=== PATIENT | male | born 1945 | race Two or more races ===

== ENCOUNTER 2018-07-18 13:35 | Inpatient (IN) | payer OTHER ==
[~2018-07-18] VITALS: Ht 182.9 cm; Wt 101.1 kg
[2018-07-18] MEDS ORDERED: NALOXONE HCL 0.4 MG/ML VIAL ONE (13:38)
[2018-07-18] MEDS ORDERED: NALOXONE HCL 0.4 MG/ML VIAL IV ONE (13:38)
[2018-07-18] MEDS ORDERED: SODIUM CHLORIDE 0.9% 500 ML IV ONE (13:41)
[2018-07-18] MEDS: MIDAZOLAM DRIP 50 mg/50mL 50 ML IV SCH ×2 (13:52→17:45)
[2018-07-18] MEDS: NOREPINEPHRINE 8 MG/250ML KIT 250 ML IV SCH (13:52)
[2018-07-18] MEDS ORDERED: MIDAZOLAM DRIP 50 mg/50mL 50 ML IV ONE (13:54)
[2018-07-18] MEDS ORDERED: NOREPINEPHRINE 8 MG/250ML KIT 250 ML IV ONE (13:54)
[2018-07-18] MEDS ORDERED: cefTRIAXone 1GM/50ML D5W 50 ML IV ONE (14:15)
[2018-07-18] MEDS ORDERED: LORazepam 2MG/ML-1ML VIAL IV ONE (14:28)
[2018-07-18] MEDS ORDERED: LORazepam 2MG/ML-1ML VIAL ONE (14:28)
[2018-07-18 14:32] LABS: Basophils # (auto) 0 uL; Basophils % (auto) 0.1 % (0.0-2.0); Eosinophils # (auto) 0 uL; Eosinophils % (auto) 0.1 % (0.0-7.0); Hemoglobin 12.1 g/dL (13.5-17.5); White Blood Cell 22.4 10^3/uL (4.4-10.8)
[2018-07-18 14:33] LABS: Hematocrit 40.7 % (41.0-53.0); Lymphocytes # (auto) 3.6 uL; Lymphocytes % (auto) 15.9 % (10.0-50.0); Mean Corpuscular Hemoglobin 24.2 pg (28.0-32.0); Mean Corpuscular Hgb Conc. 29.8 g/dL (32.0-36.0); Mean Corpuscular Volume 81.2 fL (80.0-100.0); Monocytes # (auto) 1.2 uL; Monocytes % (auto) 5.2 % (0.0-12.0); Neutrophils # (auto) 17.6 uL; Neutrophils % (auto) 78.7 % (37.0-80.0); Platelet Count (auto) 255 10^3/uL (140-450); Red Blood Cells 5.01 10^6/uL (4.5-5.90); Red Cell Distribution Width 15.8 % (11.8-14.3)
[2018-07-18 14:43] LABS: INR 1.1 (0.9-1.15); Partial Thromboplastin Time 28.3 sec (23.78-33.04); Prothrombin Time 11.7 sec (9.27-12.13)
[2018-07-18 14:44] LABS: BUN/Creatinine Ratio 10.5; Calcium 8.1 mg/dL (8.5-10.1); Magnesium 2.7 mg/dL (1.6-2.6)
[2018-07-18 14:54] LABS: Bilirubin, Total 0.5 mg/dL (0.2-1.0); Total Protein 7.1 g/dL (6.4-8.2)
[2018-07-18 15:14] LABS: Potassium 2.9 mmol/L (3.5-5.1)
[2018-07-18] MEDS ORDERED: SODIUM CHLORIDE 0.9% 1,000 ML IV ONE ×2 (15:19→20:00)
[2018-07-18] MEDS ORDERED: LEVOFLOXACIN 500MG 100 ML IV ONE (15:30)
[2018-07-18] MEDS ORDERED: SOD CHL 0.9%/ KCL 40MEQ 1,000 ML IV ONE (15:30)
--- NOTE | 2018-07-18 16:26 | NUR ---
RT NOTE: UNABLE TO DO VENT CHECK AT THIS TIME DUE TO STERILE PROCEDURE IN PROCESS. WILL CONTINUE TO MONITOR.
[2018-07-18] MEDS ORDERED: metroNIDAZOLE 500MG/100ML 100 ML IV ONE (16:45)
[2018-07-18] MEDS ORDERED: PROPOFOL 100 ML IV ONE (17:01)
[2018-07-18] MEDS: PROPOFOL 100 ML IV SCH (17:25)
[2018-07-18 18:50] VITALS: BP 133/92
[2018-07-18] MEDS ORDERED: POTASSIUM CHL 20MEQ/100ML 100 ML IV ONE ×2 (19:05→19:15)
[2018-07-18] MEDS ORDERED: SODIUM BICARBONATE 50ML VIAL 50 ML in SOD CHL 0.45% 1,000 ML IV ONE (20:00)
[2018-07-18] MEDS ORDERED: hydrALAZINE HCL 20 MG/ML VL IV PRN (20:00)
[2018-07-18] MEDS ORDERED: PROMETHAZINE HCL 25 MG/ML 1ML IV PRN (20:00)
[2018-07-18] MEDS ORDERED: ALBUTEROL SULF 2.5 MG/0.5ML(0.5%) NEB SOLN NEB ONE (20:00)
[2018-07-18] MEDS ORDERED: IPRATROPIUM BROM 0.5 MG/2.5ML INH SOL NEB ONE (20:00)
[2018-07-18] MEDS ORDERED: ceFAZolin 1GM VL ONE (20:02)
[2018-07-18] MEDS ORDERED: BUPIVACAINE 0.25% INJ 50ML VIAL ONE (20:03)
[2018-07-18 20:15] VITALS: BP 138/86
[2018-07-18 21:31] LABS: Potassium 3.1 mmol/L (3.5-5.1)
[2018-07-18 21:39] LABS: Lactic Acid w/Reflex 3.1 mmol/L (0.4-2.0)
[2018-07-19] VITALS (98 sets, daily range): BP systolic 82–154; BP diastolic 37–77
--- NOTE | 2018-07-19 00:03 | NUR ---
Pt being admitted to ICU from OR [facility],JANINE admitted from OR to ICU via gurney on cardiac rehabilitation program director, and portable 02. Patient transferred to bed, connected to ICU monitoring and oxygen, and weighed by bedscale. Patient oriented to Holly Hermosillo, primary RN, unit, room, bed, and unit policies regarding patient care and visiting hours. All questions and concerns addressed, family verbalized understanding. NOTE: Patient on sedation with versed @ 15 mg/hr, levophed drip @ 8 mcg/min, NS w/ NaHCO3 @ 50ml/hr, NS w/ 40meq KCL @ 50ml/hr infusing in the right femoral central line. Midline post-op incision is clean, dry and intact with marlena, colostomy bag almost filled with liquid, brown stools, odom catheter intact, NGT to the right nares connected to LIS. MRSA swab in the nares done and sent to lab. Will titrate drips per protocol.
--- NOTE | 2018-07-19 00:45 | NUR ---
REPORT RECEIVED FROM THELMA ZARATE, PT FROM OR.
[2018-07-19] MEDS ORDERED: metroNIDAZOLE 500MG/100ML 100 ML IV ONE (00:51)
[2018-07-19] MEDS ORDERED: DOXYCYCLINE 100MG/250ML 250 ML IV ONE (00:51)
[2018-07-19] MEDS ORDERED: MIDAZOLAM DRIP 50 mg/50mL 50 ML IV ONE ×2 (01:06→04:08)
[2018-07-19] MEDS: metroNIDAZOLE 500MG/100ML 100 ML IV SCH ×4 (01:28→21:53)
[2018-07-19] MEDS: DOXYCYCLINE 100MG/250ML 250 ML IV SCH ×2 (01:29→10:17)
--- NOTE | 2018-07-19 01:50 | NUR ---
LIQUID, BROWN STOOLS EMPTIED FROM COLOSTOMY BAG ABOUT 400ML.
--- NOTE | 2018-07-19 02:05 | NUR ---
RUNS OF VTACH NOTED, EKG DONE AND STRIP ATTACHED TO CHART. JOEY HOLGUIN AWARE. WILL NOTIFY DR. Rush RESENDIZ.
--- NOTE | 2018-07-19 02:15 | NUR ---
LEAKING OF LIQUID STOOLS FROM THE COLOSTOMY STUMP NOTED ALL OVER THE BODY, CLEANED PT, SPONGE BATH DONE AND COMPLETE LINENS AND GOWN CHANGED. REPOSITIONED FOR COMFORT. Addendum: 07/19/18 at 0801 by Finn Hermosillo RN CLEANED COLOSTOMY SITE AND CHANGED A NEW COLOSTOMY BAG.
--- NOTE | 2018-07-19 03:00 | NUR ---
ABDOMINAL DRESSING CHANGED AND MIDLINE INCISION COVERED WITH PRIMAPORE DRESSING.
--- NOTE | 2018-07-19 03:20 | NUR ---
CENTRAL LINE DRESSING CHANGED ASEPTICALLY, BIOPATCH APPLIED TO BASE OF THE CENTRAL LINE.
--- NOTE | 2018-07-19 03:56 | NUR ---
BLOOD DRAW FROM THE CENTRAL LINE DONE AND SPECIMEN SENT TO LAB VIA BULLET.
[2018-07-19] MEDS: MIDAZOLAM DRIP 50 mg/50mL 50 ML IV SCH ×3 (04:17→22:41)
[2018-07-19 05:28] LABS: Basophils # (auto) 0 uL; Eosinophils # (auto) 0 uL; Hemoglobin 11.4 g/dL (13.5-17.5); Lymphocytes # (auto) 1.8 uL; Monocytes # (auto) 0.7 uL; Neutrophils # (auto) 6.9 uL
[2018-07-19 05:30] LABS: Basophils % (auto) 0.1 % (0.0-2.0); Hematocrit 36.2 % (41.0-53.0); Lymphocytes % (auto) 19.3 % (10.0-50.0); Mean Corpuscular Hgb Conc. 31.6 g/dL (32.0-36.0); Mean Corpuscular Volume 79.1 fL (80.0-100.0); Monocytes % (auto) 7.6 % (0.0-12.0); Nucleated Red Blood Cells % 0.1 %; Platelet Count (auto) 175 10^3/uL (140-450); Red Blood Cells 4.58 10^6/uL (4.5-5.90); Red Cell Distribution Width 15.9 % (11.8-14.3); White Blood Cell 9.5 10^3/uL (4.4-10.8)
[2018-07-19] MEDS: PROPOFOL 100 ML IV SCH (05:30)
--- NOTE | 2018-07-19 05:44 | NUR ---
PAGED DR. Ben RESENDIZ FOR PAIN MEDS AND SEDATION. LEFT A VOICE MESSAGE, AWAITING CALL BACK.
[2018-07-19 05:49] LABS: Calcium 6.7 mg/dL (8.5-10.1)
[2018-07-19 05:51] LABS: BUN/Creatinine Ratio 19.6; Bilirubin, Total 0.5 mg/dL (0.2-1.0); Total Protein 4.8 g/dL (6.4-8.2)
[2018-07-19 06:04] LABS: Potassium 2.6 mmol/L (3.5-5.1)
--- NOTE | 2018-07-19 06:15 | NUR ---
PAGED DR. RESENDIZ RE: CRITICAL K 2.6 AND RUNS OF VTACH POST-OP. AWAITING CALL BACK.
--- NOTE | 2018-07-19 06:31 | NUR ---
DR. RESENDIZ CALLED BACK, UPDATED ON PT'S STATUS, NEW ORDERS GIVEN AND WILL CARRY OUT ORDERS AFTER ORDERS HAD BEEN VERIFIED AND READ BACK.
[2018-07-19] MEDS ORDERED: fentaNYL Drip 2500mCg/250mlNS 250 ML IV ONE (06:43)
[2018-07-19] MEDS ORDERED: POTASSIUM CHL 20MEQ/100ML 100 ML IV ONE (06:44)
[2018-07-19] MEDS ORDERED: MORPHINE SULF INJ 2 MG/ML SYRINGE 1ML IV PRN (06:45)
[2018-07-19] MEDS: fentaNYL Drip 2500mCg/250mlNS 250 ML IV SCH (07:06)
[2018-07-19] MEDS: POTASSIUM CHL 20MEQ/100ML 100 ML IV SCH ×4 (07:06→16:50)
--- NOTE | 2018-07-19 07:30 | NUR ---
BEDSIDE REPORT RECEIVED FROM NIGHT RNLIZETH. PT SEDATED, ON THE VENTILATOR AND WITH VSS. NO DISTRESS NOTED. CONTINUE TO MONITOR.
--- NOTE | 2018-07-19 07:30 | NUR ---
RECEIVED A CALL FROM DR. MARSHALL (RADIOLOGY DEPT) RE: CXR RESULT AND RELAYED TO DAY SHIFT TESSA CORONADO.
--- NOTE | 2018-07-19 07:53 | NUR ---
ASSESSMENT PT RESTING IN BED WITH EYES CLOSED. WITHDRAWS TO PAINFUL STIMULI. NO SPONTANEOUS MOVEMENT NOTED. SEDATED ON VERSED AT 15MG/HR AND FENTANYL AT 25. RR OF 30 AND SO INCREASED FENTANYL TO 30 . VENT SETTINGS OF : 7.5 ETT/24 AT THE LIP, TV 550, AC 14, 40% FIO2 AND PEEP OF 5. LUNGS CLEAR AND DIMINISHED. SCDS TO BLE. PALPABLE PULSES TO ALL EXTREMITIES. TELE [address] IN LEAD IIIA DN ELEVATED ST IN LEAD V. ABD SOFT WITH HYPOACTIVE BOWEL SOUND. . MIDLINE ABD DRESSING CLEAN AND DRY. COLOSTOMY TO LLQ, EMPTIED OF 325ML OF THICK LIQUID BROWN BM. OGT NOT IN PLACE AND REMOVED. NINA CATHETER DRAINING DARK CLAYTON URINE WITH SEDIMENT. TURNED FOR COMFORT TO HIS LEFT SIDE. SACRUM CLEAR OF ANY BREAKDOWN. PT WITH TLC TO THE RIGHT FEMORAL, SITE BENIGN. RAILS UP X4 AND BED IN LOW POSITION FOR PT SAFETY. CONTINUE TO MONITOR.
--- NOTE | 2018-07-19 07:53 | NUR ---
OGT NOT IN PROPER PLACE AND REMOVED. WILL REINSERT. Addendum: 07/19/18 at 1603 by aBrb Linares RN Amended: Links added.
[2018-07-19] MEDS: NOREPINEPHRINE 8 MG/250ML KIT 250 ML IV SCH ×2 (08:30→13:50)
--- NOTE | 2018-07-19 09:00 | NUR ---
SEDATION VACATION NO SEDATION VACATION PT'S RR 28-30 WITH CURRENT SEDATION. Addendum: 07/19/18 at 1751 by Barb Lniares RN Amended: Links added.
--- NOTE | 2018-07-19 09:46 | NUR ---
MD VISIT PT SEEN AND EXAMINED BY DR DAILY. UPDATED HIM ON THE PT'S ADMITTING DIAGNOSIS, SURGERY AND CURRENT CONDITION. ORDERS RECEIVED FOR URINE STUDIES AND NINA CATHETER CLAMPED.
[2018-07-19] MEDS ORDERED: LEVOFLOXACIN 250MG 50 ML IV SCH (10:00)
[2018-07-19] MEDS: PANTOPRAZOLE 40 MG/10 ML VIAL IV SCH (10:16)
--- NOTE | 2018-07-19 10:30 | NUR ---
PT SEEN AND EXAMINED BY DR Sheila RESENDIZ. UPDATED HIM ON THE PT'S ADMISSION INFO, SURGERY, CURRENT LABS AND CURRENT CONDITION. WANTS K LEVEL 30 MINUTES AFTER FIST 40 mEQ REPLACEMENT POTASSIUM HAS INFUSED. THEN CALL HIM WITH RESULT FOR FURTHER ORDERS.
[2018-07-19 11:24] LABS: Urine WBC None Seen /hpf (0 - 3)
[2018-07-19 11:54] LABS: Protein, Urine 150.2 mg/dL (0.0-11.9)
[2018-07-19 11:56] LABS: Urine Blood 2+ /uL (Negative); Urine Mucus FEW (None Seen); Urine Specific Gravity 1.026 (1.001-1.035)
[2018-07-19 12:11] LABS: Urine Bacteria FEW /hpf (None Seen)
[2018-07-19] MEDS: SOD CHL 0.45% WITH 20MEQ KCL 1,000 ML IV SCH ×3 (12:15→22:40)
--- NOTE | 2018-07-19 13:00 | NUR ---
PAGED DR Gerard HITCHCOCK FOR THE SECOND TIME TO SEE IF HE IS OKAY WITH HEPARIN DRIP ORDERED BY DR BROOKS.
--- NOTE | 2018-07-19 13:08 | NUR ---
WOUND CARE NOTE: Wound care in to see patient due to low Tato score and intubation status putting patient to high risk for skin breakdown . Patient is 73 years old male with admitting diagnosis of CPR w/ ROSC. Patient is resting in ICU bed in Rm. 110. He's intubated, sedated and mechanically ventilated. Patient appears to be in no pain using [place] Dash Faces Pain Scale. Skin assessment done with the assistance of patient's nurse, TESSA Day. Patient has C/D/I abdominal dressing s/p Exploratory Lap by Dr. Tate. Patient's Lt antecubital noted with erythema, skin is intact, no drainage or odor noted, left open to air. Bedside nurse reported that she's not sure what is infusing to Lt antecubital previous IV site. Skin is soft, no edema or induration noted, left open to air. No pressure injury related issue noted. Patient tolerated well. Repositioned patient for comfort facing his Rt side, redistributed pressure points with pillows. Patient tolerated well. RECOMMENDATION: BID/PRN cleaning and application of Barrier cream sacrum as preventative per MD order, frequent turning and repositioning schedule as condition permits, redistribute pressure points with pillows, elevate heels on pillows, continue monitoring by wound care while patient is mechanically ventilated. Addendum: 07/19/18 at 1539 by Vanessa Chery RN Amended: Links added.
[2018-07-19] MEDS ORDERED: ASPirin 325 MG TAB PO ONE (14:00)
[2018-07-19] MEDS ORDERED: ATORVASTATIN 20 MG TAB PO ONE (14:00)
--- NOTE | 2018-07-19 14:00 | NUR ---
RECEIVED ORDERS FOR PO MEDS FROM DR BROOKS, BUT PENDING APPROVAL FROM DR Gerard HITCHCOCK TO ADMINISTER PO MEDS AFTER PT HAD SURGERY LAST NIGHT.
[2018-07-19] MEDS: LEVOFLOXACIN 500MG 100 ML IV SCH (15:49)
--- NOTE | 2018-07-19 16:43 | NUR ---
ELEVATED TEMP/ PAGED AND SPOKE WITH DR Sheila RESENDIZ REGARDING PT TEMP OF 101.3 . ORDERS RECEIVED FOR TYLENOL PER OGT ONLY IF APPROVED BY DR Gerard HITCHCOCK, BLOOD CULTURES X2, VANCOMYCIN PER PHARMACY WITH ONE GRAM TO BE GIVEN NOW.
[2018-07-19] MEDS ORDERED: VANCOMYCIN PER PHARMACY 0 MG IV SCH (16:45)
[2018-07-19] MEDS ORDERED: VANCOMYCIN 1GM/250ML 250 ML IV ONE (16:45)
[2018-07-19] MEDS ORDERED: VANCOMYCIN 1,500 MG in D5W 5% 250 ML IV SCH (18:00)
--- NOTE | 2018-07-19 18:06 | NUR ---
ORAL TEMP NOW 99.8. CONTINUE TO MONITOR.
--- NOTE | 2018-07-19 19:00 | NUR ---
MD VISIT KPT SEEN AND EXAMINED BY DR CAREY. UPDATED HIM ON THE PT'S HX, CURRENT CONDITION. HE SPOKE WITH THE PT'S KIDS WHO WERE AT THE BEDSIDE.
--- NOTE | 2018-07-19 19:30 | NUR ---
BEDSIDE REPORT GIVEN TO NIGHT RNAQUILES. CHECKED PT'S STOMA A LIGHT PINK. NO CHANGE SINCE AM ASSESSMENT.
--- NOTE | 2018-07-19 19:35 | NUR ---
BLOOD DRAWN FOR CBC PT AND BMP.
--- NOTE | 2018-07-19 19:45 | NUR ---
OPENING SHIFT NOTE Received report from TESSA Day. Pt resting in bed, intubated, sedated, and on vasopressor. See IV spreadsheet and completed physical assessment. Stoma to LLQ pinkish-red in center with darkening noted around center and small amount of light brown, liquid stool draining from stoma. Bed locked, in lowest position with top two side rails up, and call light within reach. All alarms on and audible. Will continue to monitor pt.
[2018-07-19 20:13] LABS: Basophils # (auto) 0 uL; Eosinophils # (auto) 0 uL; Hemoglobin 10.2 g/dL (13.5-17.5); Lymphocytes # (auto) 2.1 uL; Monocytes # (auto) 0.8 uL; Neutrophils # (auto) 8.4 uL; Red Cell Distribution Width 16.2 % (11.8-14.3)
[2018-07-19 20:15] LABS: Basophils % (auto) 0.1 % (0.0-2.0); Hematocrit 32.3 % (41.0-53.0); Lymphocytes % (auto) 18.6 % (10.0-50.0); Mean Corpuscular Hemoglobin 24.8 pg (28.0-32.0); Mean Corpuscular Hgb Conc. 31.6 g/dL (32.0-36.0); Mean Corpuscular Volume 78.4 fL (80.0-100.0); Monocytes % (auto) 7.2 % (0.0-12.0); Neutrophils % (auto) 74.1 % (37.0-80.0); Nucleated Red Blood Cells % 0.1 %; Platelet Count (auto) 137 10^3/uL (140-450); Red Blood Cells 4.12 10^6/uL (4.5-5.90); White Blood Cell 11.4 10^3/uL (4.4-10.8)
[2018-07-19 20:24] LABS: INR 1.33 (0.9-1.15); Partial Thromboplastin Time 37.8 sec (23.78-33.04)
[2018-07-19 20:56] LABS: Albumin 1.7 g/dL (3.4-5.0); Bilirubin, Direct 0.2 mg/dL (0-0.2); Calcium 6.7 mg/dL (8.5-10.1); Magnesium 1.8 mg/dL (1.6-2.6)
[2018-07-19 20:59] LABS: BUN/Creatinine Ratio 19.6; Bilirubin, Total 0.5 mg/dL (0.2-1.0); Potassium 3.1 mmol/L (3.5-5.1); Total Protein 4.7 g/dL (6.4-8.2)
--- NOTE | 2018-07-19 21:44 | NUR ---
PHONE CALL FROM GRANDANTONIOUGHTER Received phone call from manpreet Aguilar's granddaughter who provided to correct password. Updated on pt condition and answered all questions. Lauren verbalized understanding.
--- NOTE | 2018-07-19 22:57 | NUR ---
DR. Azul HITCHCOCK AT BEDSIDE Dr. Azul Hitchcock at bedside assessing pt. Notified of darkening noted around stoma and updated on pt condition. Per Dr. Azul Hitchcock, no medications to be given via OGT at this time and heparin drip not to be started. No new orders received. Also notified Dr. Azul Hitchcock of family's request for update via phone call this evening. Per Dr. Azul Hitchcock, will update family tomorrow during daytime.
--- NOTE | 2018-07-19 23:31 | NUR ---
COLOSTOMY BAG CHANGED Colostomy bag changed. Pt tolerated well.
[2018-07-20] VITALS (106 sets, daily range): BP systolic 93–126; BP diastolic 44–64
--- NOTE | 2018-07-20 | NUR ---
BATH/LINEN CHANGE Pt given complete CHG bath. Skin integrity assessed for any changes, no changes noted. Linens changed. Pt repositioned for comfort. Pt tolerated well and VSS.
--- NOTE | 2018-07-20 01:38 | NUR ---
LEFT V/M FOR DR. Uche RESENDIZ RE: POTASSIUM Left v/m for Dr. Uche Resendiz regarding pt's potassium. Awaiting return phone call.
--- NOTE | 2018-07-20 01:40 | NUR ---
RETURN PHONE CALL FROM DR. Uche RESENDIZ Received return phone call from Dr. Uche Resendiz. Notified of potassium and updated on pt condition. Telephone orders received and verified via read-back.
[2018-07-20] MEDS ORDERED: MAGNESIUM SULFATE 1GM/100ML 100 ML IV ONE ×2 (01:45→01:52)
[2018-07-20] MEDS ORDERED: POTASSIUM CHL 20MEQ/100ML 100 ML IV ONE (01:52)
[2018-07-20] MEDS: POTASSIUM CHL 20MEQ/100ML 100 ML IV SCH ×2 (02:00→04:11)
[2018-07-20] MEDS: MIDAZOLAM DRIP 50 mg/50mL 50 ML IV SCH ×3 (03:11→22:40)
[2018-07-20] MEDS: fentaNYL Drip 2500mCg/250mlNS 250 ML IV SCH (06:24)
[2018-07-20] MEDS: NOREPINEPHRINE 8 MG/250ML KIT 250 ML IV SCH (06:25)
[2018-07-20] MEDS: metroNIDAZOLE 500MG/100ML 100 ML IV SCH ×3 (06:27→22:40)
[2018-07-20] MEDS ORDERED: ALBUTEROL SULF 2.5 MG/0.5ML(0.5%) NEB SOLN NEB PRN (07:30)
--- NOTE | 2018-07-20 07:30 | NUR ---
REPORT Report given to TESSA Day. Care endorsed.
[2018-07-20] MEDS: SOD CHL 0.45% WITH 20MEQ KCL 1,000 ML IV SCH ×2 (07:36→16:18)
--- NOTE | 2018-07-20 08:06 | NUR ---
ASSESSMENT PT RESTING IN BED WITH EYES CLOSED. SLIGHT WITHDRAWL TO PAINFUL STIMULI. PUPILS 2 AND SLUGGISH. SEDATED ON VERSED AT 13 MG/HR, DECREASED TO 12, AND FENTANYL AT 125 MCG/HR. ON THE VENTILATOR WITH 7.5 ET/24 AT THE LIP, TV 550, AC 14, 30% FIO2 AND PEEP OF 5. LUNGS CLEAR THROUGHOUT. SUCTIONED VIA ETT FOR SMALL AMOUNT OF THIN CLEAR FLUID. TELE ST AT 115 . PALPABLE PULSES TO ALL EXTREMITIES. SCDS TO BLE. ABD SOFT WITH NO BOWEL SOUNDS NOTED. MIDLINE INCISION WITH DRESSING CLEAN AND DRY. LLQ COLOSTOMY WITH LIQUID SHAH/BROWN BM DRAINING. STOMA PINK/LIGHT RED. NINA CATHETER DRAINING CLAYTON URINE WITH SEDIMENT. TLC TO THE RIGHT FEMORAL, SITE BENIGN. PT CURRENTLY ON VERSED, FENTANYL, LEVOPHED AND IVF. PT WITH OPTIFOAM TO SACRUM, SKIN CLEAR UNDERNEATH. OPTIFOAM TO LAC, SKIN WAS VERY RED YESTERDAY AND SMALL AMOUNT OF BLOOD FROM OLD IV SITE. TODAY BLANCHABLE PINK. CONTINUE TO MONITOR. RAILS UP X4 AND BED IN LOW POSITION FOR PT SAFETY.
[2018-07-20 08:23] LABS: Basophils # (auto) 0 uL; Hemoglobin 10.1 g/dL (13.5-17.5); Lymphocytes # (auto) 2.2 uL; Monocytes # (auto) 0.8 uL
[2018-07-20 08:25] LABS: Eosinophils # (auto) 0.1 uL; Eosinophils % (auto) 0.5 % (0.0-7.0); Hematocrit 31.6 % (41.0-53.0); Lymphocytes % (auto) 19.1 % (10.0-50.0); Mean Corpuscular Hemoglobin 24.9 pg (28.0-32.0); Mean Corpuscular Hgb Conc. 31.8 g/dL (32.0-36.0); Mean Corpuscular Volume 78.1 fL (80.0-100.0); Monocytes % (auto) 6.5 % (0.0-12.0); Neutrophils # (auto) 8.6 uL; Neutrophils % (auto) 73.9 % (37.0-80.0); Platelet Count (auto) 133 10^3/uL (140-450); Red Blood Cells 4.05 10^6/uL (4.5-5.90); Red Cell Distribution Width 15.9 % (11.8-14.3); White Blood Cell 11.7 10^3/uL (4.4-10.8)
[2018-07-20 08:40] LABS: INR 1.2 (0.9-1.15); Partial Thromboplastin Time 38.5 sec (23.78-33.04); Prothrombin Time 12.7 sec (9.27-12.13)
[2018-07-20 08:43] LABS: Albumin 1.8 g/dL (3.4-5.0); Calcium 7.1 mg/dL (8.5-10.1); Potassium 3.5 mmol/L (3.5-5.1)
[2018-07-20 08:48] LABS: Bilirubin, Direct 0.2 mg/dL (0-0.2); Bilirubin, Total 0.5 mg/dL (0.2-1.0); Phosphorus 2.4 mg/dL (2.5-4.90); Total Protein 4.8 g/dL (6.4-8.2)
[2018-07-20] MEDS ORDERED: ATORVASTATIN 20 MG TAB PO ONE (10:00)
--- NOTE | 2018-07-20 10:30 | NUR ---
PT REPOSITIONED TO HIS RIGHT SIDE. NO TURNS TO THE LEFT PER DR Gerard HITCHCOCK.
[2018-07-20] MEDS: LEVOFLOXACIN 500MG 100 ML IV SCH (10:31)
[2018-07-20] MEDS: ASPirin 325 MG TAB PO SCH (10:32)
[2018-07-20] MEDS: PANTOPRAZOLE 40 MG/10 ML VIAL IV SCH (10:32)
--- NOTE | 2018-07-20 10:55 | NUR ---
ORAL TEMP OF 100.7. APPLIED ICE PACKS UNDER BOTH ARMS AND COOL WASHCLOTH TO FOREHEAD. CONTINUE TO MONITOR.
[2018-07-20] MEDS: ALBUTEROL SULF 2.5 MG/0.5ML(0.5%) NEB SOLN NEB SCH ×2 (11:40→18:58)
[2018-07-20] MEDS: ALBUMIN 25% 100 ML IV SCH ×2 (12:13→18:17)
[2018-07-20] MEDS ORDERED: VANCOMYCIN PER PHARMACY 0 MG IV SCH (13:30)
--- NOTE | 2018-07-20 14:00 | NUR ---
Respiratory note: ADVANCED ETT TO 26CM PER XRAY REPORT.
[2018-07-20] MEDS ORDERED: FUROSEMIDE 100 MG/10ML VIAL IV ONE (15:45)
--- NOTE | 2018-07-20 16:00 | NUR ---
MD/DECREASED UOP/LUNG CONGESTION SPOKE WITH DR DAILY AND MADE AWARE OF ONLY 125 ML UOP FOR DAY SHIFT SO FAR AND THAT PT WITH INSPIRATORY AND EXPIRATORY RHONCHI THROUGHOUT. ORDER RECEIVED FOR LASIX 80 IV ONCE. ADMINISTERED 10 MG IV NOW AND WILL GIVEN PT TOLERATES. CURRENT BP OF 108/51 AND PT ON LEVOPHED AT 3 MCG. CONTINUE TO MONITOR BP.
--- NOTE | 2018-07-20 16:20 | NUR ---
BP OF 110/54. GIVEN 20MG OF OF ORDERED 80 MG IV LASIX. CONTINUE TO MONITOR BP.
[2018-07-20] MEDS: PROPOFOL 100 ML IV SCH (17:19)
[2018-07-20] MEDS ORDERED: VANCOMYCIN 1,250 MG in D5W 5% 250 ML IV SCH (18:00)
[2018-07-20 18:10] LABS: Basophils # (auto) 0 uL; Eosinophils # (auto) 0 uL; Eosinophils % (auto) 0.4 % (0.0-7.0); Hemoglobin 8.9 g/dL (13.5-17.5)
[2018-07-20] MEDS: PIPERACILLIN-TAZOB 3.375GM 100 ML IV SCH (18:17)
[2018-07-20 18:18] LABS: Basophils % (auto) 0.1 % (0.0-2.0); Hematocrit 28.2 % (41.0-53.0); Lymphocytes # (auto) 1.6 uL; Lymphocytes % (auto) 17.7 % (10.0-50.0); Mean Corpuscular Hgb Conc. 31.7 g/dL (32.0-36.0); Mean Corpuscular Volume 78.8 fL (80.0-100.0); Monocytes # (auto) 0.6 uL; Monocytes % (auto) 6.9 % (0.0-12.0); Neutrophils # (auto) 6.9 uL; Neutrophils % (auto) 74.9 % (37.0-80.0); Platelet Count (auto) 116 10^3/uL (140-450); Red Blood Cells 3.57 10^6/uL (4.5-5.90); Red Cell Distribution Width 16.2 % (11.8-14.3); White Blood Cell 9.2 10^3/uL (4.4-10.8)
[2018-07-20 18:29] LABS: Calcium 7.3 mg/dL (8.5-10.1); Magnesium 2.1 mg/dL (1.6-2.6); Potassium 3.8 mmol/L (3.5-5.1)
[2018-07-20 18:33] LABS: BUN/Creatinine Ratio 14.9; Bilirubin, Direct 0.2 mg/dL (0-0.2); Bilirubin, Total 0.5 mg/dL (0.2-1.0); Total Protein 4.8 g/dL (6.4-8.2)
[2018-07-20 18:42] LABS: INR 1.16 (0.9-1.15); Partial Thromboplastin Time 40.7 sec (23.78-33.04); Prothrombin Time 12.3 sec (9.27-12.13)
--- NOTE | 2018-07-20 18:43 | NUR ---
ELEVATED TEMP PT WITH INCREASING ORAL TEMP. NOW AT 101.5, DESPITE ICE PACKS. NO PO MEDS PER DR Gerard HITCHCOCK. APPLIED COOLING BLANKET AT MANUAL SETTING WITH WATER TEMP OF 65 DEGREES. WILL CONTINUE TO MONITOR ORAL TEMP MANUALLY. DO NOT WANT TO INSERT RECTAL PROBE S/P PT'S SURGERY. FAMILY AT THE BEDSIDE AND AWARE.
--- NOTE | 2018-07-20 19:15 | NUR ---
REPORT GIVEN TO [place] RNAQUILES.
--- NOTE | 2018-07-20 19:42 | NUR ---
PAGED AND SPOKE WITH DR LADY ANDINO REGARDING VANCOMYCIN DOSE AND WORSENING RENAL FUNCTION. NOTIFIED OF LAB RESULTS DRAWN AT 1740, INCLUDING BUN 33/CREAT 2.22 AND PLATELET COUNT OF 116 AND ALSO ALL CULTURE RESULTS.. ALSO NOTIFIED OF EARLIER LACTIC ACID RESULTS. ORDER RECEIVED TO DC VANCOMYCIN AND START ZYVOX 600MG IV Q 12 HOURS BUT TO DISCUSS THIS WITH DR Sheila RESENDIZ TOMORROW.
--- NOTE | 2018-07-20 20:00 | NUR ---
OPENING SHIFT NOTE Received report from TESSA Day. Pt resting in bed, intubated, sedated, and on vasopressor. See IV spreadsheet and completed physical assessment. Cooling measures implemented for elevated temperature. Stoma to LLQ pinkish-red in center with darkening noted around center and small amount of light brown, liquid, sedimented stool draining from stoma. Bed locked, in lowest position with top two side rails up, and call light within reach. All alarms on and audible. Will continue to monitor pt.
--- NOTE | 2018-07-20 23:01 | NUR ---
VISITOR Pt's daughter, Bren at bedside. Updated on pt condition and answered all questions. Bren verbalized understanding.
[2018-07-20] MEDS: LINEZOLID 600MG/300ML 300 ML IV SCH (23:58)
[2018-07-21] VITALS (104 sets, daily range): BP systolic 86–150; BP diastolic 43–77
[2018-07-21] MEDS: PIPERACILLIN-TAZOB 3.375GM 100 ML IV SCH ×3 (00:03→13:24)
[2018-07-21] MEDS: ALBUTEROL SULF 2.5 MG/0.5ML(0.5%) NEB SOLN NEB SCH ×4 (00:14→18:57)
--- NOTE | 2018-07-21 00:21 | NUR ---
DR. Azul HITCHCOCK AT BEDSIDE Dr. Azul Hitchcock at bedside assessing pt. Dr. Azul Hitchcock spoke with pt's daughter, Bren at bedside and answered all questions. Bren verbalized understanding. No new orders received.
[2018-07-21] MEDS: fentaNYL Drip 2500mCg/250mlNS 250 ML IV SCH (01:51)
--- NOTE | 2018-07-21 01:53 | NUR ---
LEVOPHED OFF Levophed held. Pt's BP 115/62. Will continue to monitor.
[2018-07-21] MEDS: ALBUMIN 25% 100 ML IV SCH (02:29)
[2018-07-21] MEDS: SOD CHL 0.45% WITH 20MEQ KCL 1,000 ML IV SCH ×3 (03:40→21:00)
[2018-07-21 04:10] LABS: Basophils # (auto) 0 uL; Basophils % (auto) 0.1 % (0.0-2.0); Eosinophils # (auto) 0.1 uL; Eosinophils % (auto) 0.7 % (0.0-7.0); Lymphocytes # (auto) 1.3 uL; Monocytes # (auto) 0.6 uL
[2018-07-21 04:13] LABS: Hematocrit 24.7 % (41.0-53.0); Lymphocytes % (auto) 16.3 % (10.0-50.0); Mean Corpuscular Hemoglobin 25.3 pg (28.0-32.0); Mean Corpuscular Hgb Conc. 32.3 g/dL (32.0-36.0); Mean Corpuscular Volume 78.4 fL (80.0-100.0); Monocytes % (auto) 7.8 % (0.0-12.0); Neutrophils # (auto) 5.8 uL; Neutrophils % (auto) 75.1 % (37.0-80.0); Platelet Count (auto) 92 10^3/uL (140-450); Red Blood Cells 3.16 10^6/uL (4.5-5.90); Red Cell Distribution Width 15.8 % (11.8-14.3); White Blood Cell 7.8 10^3/uL (4.4-10.8)
[2018-07-21 04:27] LABS: INR 1.2 (0.9-1.15); Partial Thromboplastin Time 42.8 sec (23.78-33.04); Prothrombin Time 12.7 sec (9.27-12.13)
[2018-07-21 04:36] LABS: Potassium 3.6 mmol/L (3.5-5.1)
[2018-07-21 04:45] LABS: Albumin 2.4 g/dL (3.4-5.0); BUN/Creatinine Ratio 13.7; Bilirubin, Direct 0.3 mg/dL (0-0.2); Bilirubin, Total 0.6 mg/dL (0.2-1.0); Calcium 7.4 mg/dL (8.5-10.1); Magnesium 2.2 mg/dL (1.6-2.6); Total Protein 4.9 g/dL (6.4-8.2)
--- NOTE | 2018-07-21 05:30 | NUR ---
BATH/LINEN CHANGE/DRESSING CHANGE Pt given complete CHG bath. Skin integrity assessed for any changes, no changes noted. Linens changed. Dressing to mid-abdominal incision changed using sterile technique. Pt repositioned for comfort. Pt tolerated well and VSS.
[2018-07-21] MEDS: MIDAZOLAM DRIP 50 mg/50mL 50 ML IV SCH (05:46)
[2018-07-21] MEDS: metroNIDAZOLE 500MG/100ML 100 ML IV SCH ×3 (05:46→22:00)
--- NOTE | 2018-07-21 07:25 | NUR ---
REPORT Report given to TESSA Heart. Care endorsed.
--- NOTE | 2018-07-21 08:00 | NUR ---
OPEN RECEIVED REPORT FROM NIGHT RN, AQUILES. ASSUMED CARE OF ICU PATIENT, FULL CODE STATUS. PATIENT SEDATED AND INTUBATED. PATIENT ON VENT, CURRENT FIO2 35%. NGT TO LEFT DONNELLY, CLAMPED. NINA TO GRAVITY. LLQ COLOSTOMY IN PLACE. SKIN INTACT TO SACRAL , PINK BLANCHABLE. PATIENT TURNED TO LEFT SIDE AT THIS TIME. OFF LOADING PRESSURE AREAS WITH PILLOWS. WILL CONTINUE TO TURN PATIENT Q2HRS AND PRN. RIGHT FEMORAL TLC WITH GTT'S AT THIS TIME. SEE IV FLOW SHEET FOR GTT'S AND THEIR TITRATIONS. SEE BAGGAGE PORTER FOR FURTHER PATIENT INFORMATION .
[2018-07-21] MEDS: PANTOPRAZOLE 40 MG/10 ML VIAL IV SCH (09:40)
[2018-07-21] MEDS: ASPirin 325 MG TAB PO SCH (09:40)
[2018-07-21] MEDS: LINEZOLID 600MG/300ML 300 ML IV SCH ×2 (09:47→22:01)
[2018-07-21] MEDS: NOREPINEPHRINE 8 MG/250ML KIT 250 ML IV SCH (11:30)
--- NOTE | 2018-07-21 11:30 | NUR ---
DR. DAILY AT BEDSIDE: ORDERS MD UPDATED ON PT'S STATUS, LABS AND CURRENT URINE OUTPUT. ORDERS GIVEN AND TO BE CARRIED OUT. CONTINUE CARE.
--- NOTE | 2018-07-21 12:23 | NUR ---
Nutrition Assessment Notes please see attached link for complete assessment Est. Needs ABW [id number] kcal (23-25 kcal/kgBW), 75-93 gms pro (0.8-1.0gms/kgABW r/t elev RFT). Will continue to monitor pertinent labs and reassess nutrient needs prn Addendum: 07/21/18 at [address] Amended: Links added.
[2018-07-21] MEDS: POTASSIUM CHL 20MEQ/100ML 100 ML IV SCH ×2 (13:00→14:23)
[2018-07-21] MEDS: BUMETANIDE INJECTION 12.5 MG in GIVE UN-DILUTED 0 ML IV SCH (13:20)
--- NOTE | 2018-07-21 13:26 | NUR ---
TEMPERATURE CANNOT OBTAIN CURRENT TEMPERATURE ON PATIENT AT THIS TIME, EITHER VIA AXILLA OR ORALLY. PATIENT SEEMS COOL TO TOUCH, VSS. PAGED DR. Azul HITCHCOCK TO ASK IF I CAN PLACE RECTAL PROBE FOR TEMPERATURE MONITORING FOR PATIENT. WAITING FOR CALL BACK. WARMING MEASURES IN PLACE. CONTINUE CARE.
--- NOTE | 2018-07-21 13:30 | NUR ---
DR. BENITES AT BEDSIDE: UPDATE MD UPDATED ON PT'S CURRENT STATUS, LABS AND POC FOR TODAY. MD TALKING WITH PATIENT'S SON AND DAUGHTER AT BEDSIDE. CONTINUE CARE.
[2018-07-21] MEDS: PROPOFOL 100 ML IV SCH (14:00)
--- NOTE | 2018-07-21 15:00 | NUR ---
DR. Uche RESENDIZ AT BEDSIDE: ORDERS MD UPDATED ON PT'S CURRENT STATUS, LABS AND CURRENT POC AT THIS TIME. ORDERS TO BE GIVEN AND WILL BE CARRIED OUT. MD TALKING WITH PATIENT'S DAUGHTERS AT BEDSIDE. CONTINUE CARE.
--- NOTE | 2018-07-21 15:36 | NUR ---
RE-PAGED DR. Azul HITCHCOCK WAITING FOR CALL BACK FROM . FINALLY THERMOMETER REGISTERED A TEMP OF 97.4 ORALLY. STILL WANTING TO KNOW IF I CAN PLACE A RECTAL PROBE TO HELP MONITOR AND REGULATE PT'S TEMPERATURE. CONTINUE CARE.
[2018-07-21] MEDS: cefTRIAXone 1GM/50ML D5W 50 ML IV SCH (15:48)
[2018-07-21 17:14] LABS: Basophils # (auto) 0 uL; Basophils % (auto) 0.1 % (0.0-2.0); Eosinophils # (auto) 0.2 uL; Hemoglobin 8.2 g/dL (13.5-17.5); Monocytes # (auto) 0.7 uL; Neutrophils # (auto) 8.2 uL; White Blood Cell 10.6 10^3/uL (4.4-10.8)
[2018-07-21 17:16] LABS: Eosinophils % (auto) 1.7 % (0.0-7.0); Hematocrit 26.2 % (41.0-53.0); Lymphocytes # (auto) 1.5 uL; Lymphocytes % (auto) 14.3 % (10.0-50.0); Mean Corpuscular Hemoglobin 24.7 pg (28.0-32.0); Mean Corpuscular Hgb Conc. 31.2 g/dL (32.0-36.0); Mean Corpuscular Volume 79.2 fL (80.0-100.0); Monocytes % (auto) 6.3 % (0.0-12.0); Neutrophils % (auto) 77.6 % (37.0-80.0); Platelet Count (auto) 108 10^3/uL (140-450); Red Blood Cells 3.32 10^6/uL (4.5-5.90); Red Cell Distribution Width 15.9 % (11.8-14.3)
--- NOTE | 2018-07-21 17:19 | NUR ---
DENTURES TAKEN OUT: SENT HOME WITH PT'S SON
[2018-07-21 17:44] LABS: Albumin 2.1 g/dL (3.4-5.0); Calcium 7.6 mg/dL (8.5-10.1); Magnesium 2.4 mg/dL (1.6-2.6); Potassium 4.1 mmol/L (3.5-5.1)
[2018-07-21 17:49] LABS: BUN/Creatinine Ratio 12.6; Bilirubin, Direct 0.2 mg/dL (0-0.2); Bilirubin, Total 0.4 mg/dL (0.2-1.0); Total Protein 4.7 g/dL (6.4-8.2)
--- NOTE | 2018-07-21 18:45 | NUR ---
DR. CAREY AT BEDSIDE: ORDERS MD UPDATED ON PT'S STATUS, LABS AND CXR RESULTS FOR TODAY. INFORMED MD ON PT'S CURRENT IV GTTS AND MEDS. MD NOT WANTING TO CPAP PATIENT IN AM. MD WANTING TO CHECK WITH DR. Azul CHARLES WHEN PATIENT IS ABLE TO WEAN OFF VENT. CONTINUE CARE. RE-PAGED DR. ENGLE. IF NO CALL BACK, WILL LET NIGHT RN KNOW.
[2018-07-21 19:04] LABS: INR 1.13 (0.9-1.15); Partial Thromboplastin Time 43.2 sec (23.78-33.04)
--- NOTE | 2018-07-21 19:30 | NUR ---
OPEN ASSUMED CARE, FULL ASSESSMENT DONE; SEE INTERVENTIONS. VERSED, FENTANYL, LEVOPHED, AND BUMEX INFUSING PER IV SPREADSHEET. LEFT NGT IN PLACE AND CLAMPED, PLACEMENT VERIFIED VIA AUSCULTATION. LLQ COLOSTOMY WITH MINIMAL SHAH LIQUID OUTPUT NOTED; STOMA BEEFY RED, WNL. LOWER MID ABDOMINAL INCISION WITH ROSALES IN PLACE, WELL APPROXIMATED. DSG CDI. REPOSITIONED FOR COMFORT, ORAL CARE DONE. VITAL SIGNS STABLE.
--- NOTE | 2018-07-21 20:00 | NUR ---
REPOSITIONING PER DR. HITCHCOCK, REPOSITIONING TO BE DONE RIGHT TO SUPINE. SEE TURN/REPOSITION INTERVENTION. OPTIFOAM GENTLE TO SACRUM CDI.
--- NOTE | 2018-07-21 21:21 | NUR ---
FAMILY PT'S DAUGHTER VISITING AT BEDSIDE, ALL QUESTIONS/CONCERNS ADDRESSED.
[2018-07-22] VITALS (107 sets, daily range): BP systolic 96–159; BP diastolic 46–87
--- NOTE | 2018-07-22 00:01 | NUR ---
VERSED TITRATED OFF AT THIS TIME.
[2018-07-22] MEDS: ALBUTEROL SULF 2.5 MG/0.5ML(0.5%) NEB SOLN NEB SCH ×4 (00:27→19:00)
[2018-07-22] MEDS: BUMETANIDE INJECTION 12.5 MG in GIVE UN-DILUTED 0 ML IV SCH ×2 (02:00→14:48)
[2018-07-22] MEDS: fentaNYL Drip 2500mCg/250mlNS 250 ML IV SCH (02:00)
[2018-07-22 03:56] LABS: Basophils # (auto) 0 uL; Eosinophils # (auto) 0.2 uL; Hemoglobin 8.1 g/dL (13.5-17.5); Lymphocytes # (auto) 1.2 uL; Mean Corpuscular Hemoglobin 25.3 pg (28.0-32.0); Monocytes # (auto) 0.6 uL; Platelet Count (auto) 95 10^3/uL (140-450); Red Blood Cells 3.19 10^6/uL (4.5-5.90)
[2018-07-22 03:58] LABS: Basophils % (auto) 0.1 % (0.0-2.0); Eosinophils % (auto) 1.8 % (0.0-7.0); Hematocrit 25.1 % (41.0-53.0); Mean Corpuscular Hgb Conc. 32.2 g/dL (32.0-36.0); Mean Corpuscular Volume 78.7 fL (80.0-100.0); Monocytes % (auto) 6.8 % (0.0-12.0); Neutrophils # (auto) 7.1 uL; Neutrophils % (auto) 78.3 % (37.0-80.0); Red Cell Distribution Width 15.9 % (11.8-14.3)
--- NOTE | 2018-07-22 04:00 | NUR ---
FENTANYL TITRATED OFF AT THIS TIME.
[2018-07-22 04:06] LABS: INR 1.15 (0.9-1.15); Partial Thromboplastin Time 42.1 sec (23.78-33.04); Prothrombin Time 12.2 sec (9.27-12.13)
[2018-07-22 04:13] LABS: Potassium 3.8 mmol/L (3.5-5.1)
[2018-07-22 04:20] LABS: BUN/Creatinine Ratio 12.7; Bilirubin, Direct 0.2 mg/dL (0-0.2); Bilirubin, Total 0.4 mg/dL (0.2-1.0); Calcium 7.4 mg/dL (8.5-10.1); Magnesium 1.9 mg/dL (1.6-2.6); Total Protein 4.6 g/dL (6.4-8.2)
--- NOTE | 2018-07-22 04:27 | NUR ---
CARES FULL BATH AND LINEN CHANGE DONE, NO NEW SKIN ISSUES ASSESSED. NO CHANGE IN NEURO STATUS, PT CONTINUES TO HAVE ABSENT-HYPOACTIVE COUGH/GAG, PUPILS 2 AND SLUGGISH, NO EXT MOVEMENT NOTED.
[2018-07-22] MEDS: metroNIDAZOLE 500MG/100ML 100 ML IV SCH ×3 (05:48→21:14)
[2018-07-22] MEDS: SOD CHL 0.45% WITH 20MEQ KCL 1,000 ML IV SCH ×4 (05:48→22:05)
--- NOTE | 2018-07-22 06:05 | NUR ---
FENTANYL LOW DOSE FENTANYL RESTARTED FOR PT COMFORT; SUBCLAVICULAR RETRACTING NOTED, RR 16-18.
--- NOTE | 2018-07-22 07:11 | NUR ---
REPORT CARE ENDORSED TO TESSA CAVAZOS.
--- NOTE | 2018-07-22 08:51 | NUR ---
DR. SOTELO HERE TO SEE PATIENT. SEE MD NOTES AND EMR FOR ANY NEW ORDERS.
[2018-07-22] MEDS: cefTRIAXone 1GM/50ML D5W 50 ML IV SCH (09:09)
--- NOTE | 2018-07-22 09:20 | NUR ---
MRSA NARES CALL FROM MICROBIOLOGY TO REPORT PATIENT TESTED POSITIVE FOR MRSA IN NARES. PATIENT HAS BEEN PLACED ON CONTACT PRECAUTIONS.
[2018-07-22] MEDS: LINEZOLID 600MG/300ML 300 ML IV SCH ×2 (09:49→22:05)
[2018-07-22] MEDS: ASPirin 325 MG TAB PO SCH (09:49)
[2018-07-22] MEDS: PANTOPRAZOLE 40 MG/10 ML VIAL IV SCH (09:49)
[2018-07-22] MEDS: MIDAZOLAM DRIP 50 mg/50mL 50 ML IV SCH (13:38)
[2018-07-22] MEDS: NOREPINEPHRINE 8 MG/250ML KIT 250 ML IV SCH (13:38)
[2018-07-22] MEDS: PROPOFOL 100 ML IV SCH (16:35)
--- NOTE | 2018-07-22 19:30 | NUR ---
OPEN ASSUMED CARE, FULL ASSESSMENT DONE; SEE INTERVENTIONS. PT OFF ALL SEDATION, PUPILS 2 AND SLUGGISH, VERY HYPOACTIVE COUGH/GAG NOTED. MINIMAL RESPONSE TO PAINFUL STIMULI. LLQ COLOSTOMY NOTED, SMALL AMOUNT OF THIN SHAH OUTPUT. STOMA BEEFY RED WITH HYPERPIGMENTED AREA NOTED AROUND STOMA SITE, NO CHANGE FROM PREVIOUS SHIFT. ORAL CARE AND REPOSITIONING DONE. VITAL SIGNS STABLE. CONTINUE CARE.
--- NOTE | 2018-07-22 20:00 | NUR ---
LARRY WRIST PERIPHERAL IVs DCd USING CLEAN TECHNIQUE. PT EDEMATOUS, BOTH IVs LEAKING WHEN FLUSHED.
--- NOTE | 2018-07-22 20:49 | NUR ---
MD DR. RESENDIZ AT THE BEDSIDE DISCUSSING POC WITH SON/
--- NOTE | 2018-07-22 21:30 | NUR ---
MD/COLOSTOMY DR. HITCHCOCK AT BEDSIDE TO ASSESS PATIENT, DISCUSSING POC WITH PT'S FAMILY. STOMA EVALUATED WITH MD. CLEANSED COLOSTOMY SITE, NEW COLOSTOMY BAG APPLIED. NO NEW ORDERS RECEIVED.
--- NOTE | 2018-07-22 21:38 | NUR ---
EDUCATION FAMILY AWARE OF POSITIVE MRSA NARES RESULTS; EDUCATION PROVIDED ON CURRENT ANTIBIOTIC TREATMENT THAT PT IS RECEIVING WHICH MRSA IS SENSITIVE TO. ALL QUESTIONS/CONCERNS ADDRESSED REGARDING TREATMENT PLAN. Addendum: 07/22/18 at 2140 by Marjorie Smith RN ERROR: MRSA SPUTUM.
--- NOTE | 2018-07-22 22:22 | NUR ---
NEURO PT. NOTED WITH ABNORMAL FLEXION OF LARRY LOWER EXT WITHOUT STIMULATION. POSITIVE BABINSKI NOTED BILATERALLY WHERE IT HAD BEEN PREVIOUSLY NEGATIVE. NEURO CONSULT PLACED PER DR. RESENDIZ.
[2018-07-23] VITALS (99 sets, daily range): BP systolic 104–167; BP diastolic 48–95
[2018-07-23] MEDS: ALBUTEROL SULF 2.5 MG/0.5ML(0.5%) NEB SOLN NEB SCH ×5 (00:21→18:01)
[2018-07-23 03:59] LABS: Basophils # (auto) 0 uL; Basophils % (auto) 0.1 % (0.0-2.0); Eosinophils # (auto) 0.1 uL
[2018-07-23 04:01] LABS: Eosinophils % (auto) 0.9 % (0.0-7.0); Hematocrit 25.3 % (41.0-53.0); Hemoglobin 8.3 g/dL (13.5-17.5); Lymphocytes # (auto) 1.2 uL; Lymphocytes % (auto) 11.2 % (10.0-50.0); Mean Corpuscular Hemoglobin 25.3 pg (28.0-32.0); Mean Corpuscular Hgb Conc. 32.9 g/dL (32.0-36.0); Mean Corpuscular Volume 77.1 fL (80.0-100.0); Monocytes # (auto) 0.8 uL; Monocytes % (auto) 7.1 % (0.0-12.0); Neutrophils # (auto) 8.7 uL; Neutrophils % (auto) 80.7 % (37.0-80.0); Platelet Count (auto) 116 10^3/uL (140-450); Red Blood Cells 3.28 10^6/uL (4.5-5.90); Red Cell Distribution Width 15.9 % (11.8-14.3); White Blood Cell 10.8 10^3/uL (4.4-10.8)
[2018-07-23 04:29] LABS: Calcium 7.6 mg/dL (8.5-10.1); Potassium 3.8 mmol/L (3.5-5.1)
[2018-07-23 04:33] LABS: % Iron Saturation 6.4 % (20-55)
[2018-07-23 04:35] LABS: BUN/Creatinine Ratio 12.1; Bilirubin, Total 0.3 mg/dL (0.2-1.0); Total Protein 4.9 g/dL (6.4-8.2)
[2018-07-23 05:07] LABS: Ferritin 129.1 ng/mL (10-322)
[2018-07-23 05:08] LABS: Folate (Folic Acid) 2.98 ng/mL (5.38-24)
[2018-07-23] MEDS: metroNIDAZOLE 500MG/100ML 100 ML IV SCH ×2 (05:44→14:48)
--- NOTE | 2018-07-23 06:14 | NUR ---
CARES FULL BATH AND LINEN CHANGE DONE, NO NEW SKIN ISSUES ASSESSED. PT MOVING LOWER EXT MORE OFTEN BUT MOVEMENT IS NON-PURPOSEFUL, POSITIVE BABINSKI STILL NOTED.
--- NOTE | 2018-07-23 06:25 | NUR ---
NEURO CONSULT CALLED TO DR. SERVIN EXCHANGE @ [phone] S/[address] JOSE
[2018-07-23] MEDS: fentaNYL Drip 2500mCg/250mlNS 250 ML IV SCH (06:33)
--- NOTE | 2018-07-23 06:48 | NUR ---
REPOSITIONING REPOSITIONING DONE RIGHT TO SUPINE Q2HR THROUGHOUT SHIFT PER DR. HITCHCOCK.
--- NOTE | 2018-07-23 07:38 | NUR ---
REPORT REPORT RECEIVED FROM [place] RNBRITANY. PT IN CONTACT ISOLATION FOR +MRSA SPUTUM. INTUBATED WITH NO SEDATION. VSS. CONTINUE TO MONITOR.
--- NOTE | 2018-07-23 07:38 | NUR ---
REPORT CARE ENDORSED TO TESSA CORONADO.
[2018-07-23] MEDS ORDERED: SODIUM CHLORIDE 0.9 % NEB SOLN 3ML NEB ONE ×2 (07:56→11:48)
[2018-07-23] MEDS ORDERED: SODIUM FERR GLUC 62.5MG/5ML 125 MG in SODIUM CHL 0.9% 100 ML IV SCH (08:00)
--- NOTE | 2018-07-23 08:05 | NUR ---
ASSESSMENT PT LAYING IN BED WITH EYES CLOSED. PUPILS 3 AND BRISK. WITH BABINSKI TEST, FEET FLEX TOWARDS HEAD. SPONTANEOUS MOVEMENT OF FEET NOTED AND OCCASIONALLY BENDS LEFT KNEE . DOES NOT FOLLOW ANY COMMANDS. OFF SEDATION SINCE YESTERDAY. ON THE VENTILATOR WITH 7.5 ETT/24 AT THE LIP, TV 550, 30% FIO2, PEEP OF 5 AND AC RATE OF 14. LUNGS CLEAR THROUGHOUT. O2 SAT OF 99%. TELE SR 89. PALPABLE PULSES TO ALL EXTREMITIES. SCDS TO BLE. ABD SOFT WITH HYPOACTIVE BOWEL SOUNDS. MIDLINE ABD INCISION WITH ROSALES INTACT AND WOUNDS EDGES WELL APPROXIMATED. LIGHT PINK AROUND INCISION. DRESSING CLEAN AND DRY. LEFT ABDOMEN COLOSTOMY WITH SEROUS FLUID DRAINING. NINA CATHETER DRAINING CLEAR YELLOW URINE. TURNED FOR COMFORT. IVF TO RIGHT FEMORAL , SITE BENIGN. OPTIFOAM TO SACRUM WHICH IS A BLANCHABLE PINK. MIDSTERNAL CHEST IS A MEDIUM BLANCHABLE RED, LIKELY FROM DEFIB PADS. RAILS UP X4 FOR PATIENT SAFETY. CONTINUE TO MONITOR.
[2018-07-23] MEDS ORDERED: SODIUM FERR GLUC 62.5MG/5ML 125 MG in SODIUM CHL 0.9% 100 ML IV ONE (10:00)
[2018-07-23] MEDS: ASPirin 325 MG TAB PO SCH (10:00)
[2018-07-23] MEDS: cefTRIAXone 1GM/50ML D5W 50 ML IV SCH (10:04)
[2018-07-23] MEDS: PANTOPRAZOLE 40 MG/10 ML VIAL IV SCH (10:04)
[2018-07-23] MEDS: LINEZOLID 600MG/300ML 300 ML IV SCH (10:19)
--- NOTE | 2018-07-23 11:59 | NUR ---
Nutrition Follow-up Notes Wt.: 105.2 kg today. Pt's in isolation room, intubated, no immediate family member at bedside except for RN during rounds earlier. Pt's currently sedated with Propofol @ 9.389 ml.hr providing 247 kcal from Fat, remains NPO, no order for alternate nutrition support yet at this time, per nursing. NOted pt's for active Neurology, Wang/Oncology, Pulmonary, Nephrology and Cardiology consults. Est. Needs ABW [id number] kcal (23-25 kcal/kgBW), 75-93 gms pro (0.8-1.0gms/kgABW r/t elev RFT). Will continue to monitor pertinent labs and reassess nutrient needs prn Labs: BUN 42 H, Cr 3.46 H, Ca 7.6 L, Tpro 4.9 L, Alb 2.0 L, Fe 11 L, TIBC 73 L, % Sat 6.4 L, Folic acid 2.98 L Skin: Tato scale 11, high risk, pt's anterior medial abdomen incision dry and intact per greaser and oiler. GI: Pt had 50 ml stool output this morning per greaser and oiler. PES: Increased nutrient needs r/t current/chronic medical condition aeb intubated sedated with order od NPO Altered nutrition related lab values r/t current/chronic medical condition aeb elev RFT mod hypoalb, hypocalcemia Obesity r/t food intake more than body requirement aeb 130% IBW, BMI 31.5 kg/m2 and increased body adiposity Will continue to monitor NPO status, skin status, pertinent labs and weight trend. F/u in 2 to 3 days. Rec.: 1.) If still NPO with Albumin/Prealbumin continue trending down with GIT's not working, consider PN support if medically appropriate. 2.)Advance gradually to oral diet when medically appropriate. 3.) Refer pt to RD for further nutrition education and weight monitoring upon discharge. 4.) Continue current plan of care.
--- NOTE | 2018-07-23 12:00 | NUR ---
WOUND CARE NOTE: DR HITCHCOCK HAS PLACED ORDER FOR WOUND VAC TO ABDOMINAL SURGICAL INCISION. IN TO PLACE VAC AT THIS TIME. PATIENT REMAINS INTUBATED, NON RESPONSIVE. HE IS RESTING ON PREMIUM ICU BED AT THIS TIME. PATIENT HAS SURGICAL INCISION TO MIDLINE ABDOMEN THAT IS STAPLED. GOOD EPITHELIAL RIDGE NOTED, NO DRAINAGE NOTED. PERIWOUND IS PINK, NO ERYTHEMA OR INDURATION NOTED. APPLIED WOUND VAC PER SURGEON'S REQUEST. APPLIED CAVILON NO STING BARRIER FILM, THEN DRAPE TO PERIWOUND. APPLIED BLACK GRANUFOAM. SECURED WITH STERILE DRAPE. APPLIED TRAC PAD. CONNECTED TO VAC. SET VAC TO 125 MM/HG CONTINUOUS. GOOD SUCTION, NO LEAKS DETECTED. WOUND CARE TEAM WILL CONTINUE TO MONITOR. Addendum: 07/23/18 at 1533 by Tiffany Roland RN Amended: Links added.
--- NOTE | 2018-07-23 12:40 | NUR ---
DNR STATUS/FAMILY PT'S DAUGHTERS, AVELINA AND TEMO BEST, HERE AND HAVE DECIDED TO MAKE PT A DNR BUT CONTINUE CURRENT CARE. THEY SPOKE WITH DR Sheila RESENDIZ, BY PHONE, AND MADE HIM AWARE OF THEIR WISHES. HE THEN SPOKE TO MYSELF AND TESSA CANDELARIA, AND GAVE US THE DNR ORDER TO REFLECT THE FAMILY'S WISHES.
[2018-07-23] MEDS: NOREPINEPHRINE 8 MG/250ML KIT 250 ML IV SCH (13:50)
[2018-07-23] MEDS: MIDAZOLAM DRIP 50 mg/50mL 50 ML IV SCH (13:50)
--- NOTE | 2018-07-23 14:19 | NUR ---
CT SCAN PT TRANSPORTED TO RADIOLOGY FOR HEAD CT , VIA BED, WITH PORTABLE VENTILATOR AND HEALTH PHYSICS TECHNICIAN IN PLACE, ACCOMPANIED BY RT LIZETH, AND LAM CLAIM SPECIALIST.
--- NOTE | 2018-07-23 14:35 | NUR ---
BACK FROM CT/MD VISIT PT BACK TO ROOM AND CONNECTED TO BEDSIDE VENTILATOR AND MONITOR.. DR SERVIN IN TO EXAMINE THE PT. UPDATED HER ON THE PT'S CURRENT CONDITION AND PROVIDED HER WITH THE PHONE NUMBER OF THE PT'S DAUGHTER, ESTEPHANIA, WHO IS THE POA.
--- NOTE | 2018-07-23 15:53 | NUR ---
RESULTS OF HEAD CT BACK. PAGED DR HÉCTOR EDGAR TO NOTIFY. LEFT MESSAGE WITH OFFICE STAFF.
--- NOTE | 2018-07-23 16:00 | NUR ---
DR EDGAR/FAMILY DR HÉCTOR EDGAR CALLED BACK AND WAS NOTIFIED OF HEAD CT RESULTS BY HARJEET ALONSO RN. DR EDGAR THEN SPOKE WITH T'S EDSON, SYLVIA, AVELINA, AND ESTEPHANIA BY SPEAKERPHONE AND NOTIFIED THEM OF THE HEAD CT RESULTS AND POOR PROGNOSIS.
--- NOTE | 2018-07-23 16:25 | NUR ---
MD VISIT PT SEEN AND EXAMINED BY DR Sheila RESENDIZ AND HE WAS MADE AWARE OF FAMILY WISHES FOR TERMINAL WEAN. HE WROTE ORDERS FOR SUCH TO BE PUT INTO PLACE WHEN THE FAMILY IS READY. THEY ARE AWARE AND WILL LET ME KNOW WHEN THEY ARE READY TO PROCEED.
--- NOTE | 2018-07-23 17:23 | NUR ---
PER DR RESENDIZ'S ORDER, TERMINAL WEAN ORDER NOT VALID UNTIL SIGNED BY PT'S POA, DAUGHTER ESTEPHANIA HUGEHS, AND WITNESSED BY RN. PAPERS SIGNED BY ESTEPHANIA AND MYSELF WITNESS AT THIS TIME.
--- NOTE | 2018-07-23 18:01 | NUR ---
Respiratory note: received pt on vent, vent connected to red outlet and o2 source. alarms are set and audible ambu bag and mask at bedside, pts daughters at bedside, BS are fine course t/o, sxd small thick green/yellow. med neb tx not given pts family refusing to administer due to terminal wean tonight. TESSA Day made aware of family wishes. Rt name and pager assignment written on pts room board.will continue to monitor.
[2018-07-23] MEDS ORDERED: HYOSCYAMINE SULF 0.125 MG ODT TAB PO PRN (18:45)
[2018-07-23] MEDS ORDERED: LORazepam 2MG/ML-1ML VIAL IV ONE (18:45)
[2018-07-23] MEDS ORDERED: ONDANSETRON HCL 4 MG/2 ML VIAL IV PRN (18:45)
[2018-07-23] MEDS ORDERED: MORPHINE SULFATE 4 MG/ML SYR/VIAL IV ONE (18:45)
--- NOTE | 2018-07-23 19:05 | NUR ---
Respiratory note: At bedside with Lead RT Reina Guerrier, RNS Elba Linares and Uche Rodirguez, for terminal extubation. Family at bedside.
--- NOTE | 2018-07-23 19:05 | NUR ---
FAMILY READY FOR TERMINAL WEAN. ADMINISTERED ATIVAN 1MG AND MORPHINE 3 MG SLOW IVP PRIOR TO TERMINAL WEAN. FAUSTINO RT, AND TAWNYA,RT AT BEDSIDE AND PT TERMINALLY WEANED. FAMILY AT THE BEDSIDE.
--- NOTE | 2018-07-23 19:20 | NUR ---
REPORT GIVEN TO BRETT ATKINSON RN.
[2018-07-23] MEDS: MORPHINE SULFATE 4 MG/ML SYR/VIAL IV PRN ×8 (19:28→22:55)
--- NOTE | 2018-07-23 19:30 | NUR ---
ASSUMED CARE FROM TESSA CORONADO
--- NOTE | 2018-07-23 19:45 | NUR ---
OPENING NOTE: TERMINALLY WEANED AT 1905 PER REPORT. PATIENT REMAINS UNRESPONSIVE. HR 80-90s, SBP 140s. LABORED BREATHING. LS COARSE THROUGHOUT. CREAMY WHITE SECRETIONS. RR 20s. SpO2>86. ABD SOFT. NORMOACTIVE BS. COLOSTOMY TO LEFT QUADRANT. STOMA RED. COLOSTOMY APPLIANCE INTACT. BROWN LIQUID STOOL IN COLLECTION BAG. MLI TO [place], SUCTION INTACT. NGT REMOVED WHEN ETT REMOVED. BUE EDEMA. NINA PATENT AND INTACT, DRAINING YELLOW URINE. RIGHT FEMORAL TLC, PATENT, CDI WITH BLOOD RETURN. SKIN GROSSLY INTACT, SEE WOUND AND SKIN FLOWSHEET FOR ASSESSMENT. REINFORCED POC, AND COMFORT CARE PER. MAINTAINED PATIENT SAFETY. ENCOURAGED FAMILY TO VERBALIZE QUESTIONS, AND CONCERNS. WILL CONT CARE.
--- NOTE | 2018-07-23 20:00 | NUR ---
FAMILY DEFERRING REPOSITIONING AT THIS TIME
[2018-07-24] VITALS (72 sets, daily range): BP systolic 65–106; BP diastolic 27–55
[2018-07-24] MEDS: MORPHINE SULFATE 4 MG/ML SYR/VIAL IV PRN ×26 (05:50→23:50)
--- NOTE | 2018-07-24 06:00 | NUR ---
[facility] DOWN TIME, HARD COPY CHARTING FROM [phone]
[2018-07-24] MEDS: LORazepam 2MG/ML-1ML VIAL IV PRN ×9 (06:16→22:22)
--- NOTE | 2018-07-24 06:30 | NUR ---
CLOSING NOTE: UNRESPONSIVE. RECEIVED MORPHINE~ Q15MIN PRN ORDERED, AND ATIVAN ~Q1H PRN. SpO2 NOW IN THE 60s. SBP IN 80-90s. HR 90s. FAMILY AT BEDSIDE ALL NIGHT. DEFERRED REPOSITIONING OF PATIENT.
--- NOTE | 2018-07-24 07:42 | NUR ---
REPORT AND CARE ENDORSED TO TESSA KAUR
--- NOTE | 2018-07-24 07:45 | NUR ---
OPENING SHIFT NOTE Report received from Allyssa ZARATE, care assumed. Patient observed in high fowlers, agonal breathing but no actual distress noted. Lungs clear, on 2 l nasal cannula for comfort. Oxygen sat 60-70's. Pulses palpable, SR 90's. Patient slightly turned to right side to assess back. Unable to turn completely due to being unstable. Patient went apneic with the slight minimal turn. Bed locked in lowest position, call light within reach. Patient family members at bedside.
--- NOTE | 2018-07-24 08:15 | NUR ---
WOUND CARE Site is red with yellow sloughing noted. Chlorhexidine swab cleansed medial chest site. Thera-honey applied, and Optifoam placed.
--- NOTE | 2018-07-24 08:20 | NUR ---
PAIN Patient grunting, agonal breathing, and showing signs of discomfort. Patient medicate for pain PRN.
--- NOTE | 2018-07-24 08:31 | NUR ---
MD ROUNDS at bedside assessing patient and speaking with family members. Orders placed for hospice.
--- NOTE | 2018-07-24 08:54 | NUR ---
WOUND CARE NOTE: Wound care in for daily monitoring of wound vac functioning. Patient continue resting in ICU bed in Rm. 110. He's terminally extubated on the night of 07/23/18. Patient's abdominal wound vac dressing remain intact and attached to Info Vac, functioning well at 125 mmHg continuos as MD ordered. Good seal noted, no leak detected. No drainage noted in canister. Wound care will continue to monitor.
--- NOTE | 2018-07-24 09:09 | NUR ---
SOCIAL SERVICE Spoke with Janak FRANKLIN regarding hospice list. She stated she will come to bedside to speaking with family.
--- NOTE | 2018-07-24 10:02 | NUR ---
COMFORT Patient repositioned, oral care performed. Medications given PRN for comfort per family request. No distress noted.
--- NOTE | 2018-07-24 10:47 | NUR ---
PAIN Patient appears to be restless and showing signs of discomfort. Patient medicate for pain PRN.
[2018-07-24] MEDS ORDERED: SODIUM FERR GLUC 62.5MG/5ML 125 MG in SODIUM CHL 0.9% 100 ML IV SCH (12:00)
--- NOTE | 2018-07-24 12:00 | NUR ---
REPOSITIONING Patient too unstable at this time for repositioning. Will reassess within the hour after pain medication given to allow patient to tolerate activity.
--- NOTE | 2018-07-24 12:20 | NUR ---
COMFORT Patient repositioned, oral care performed. Medications given PRN for comfort per family request. No distress noted.
--- NOTE | 2018-07-24 13:27 | NUR ---
SOCIAL SERVICE Spoke with Venus from social worker clinical. Family has not made a decision regarding hospice company at this time.
--- NOTE | 2018-07-24 14:02 | NUR ---
COMFORT Patient repositioned, oral care performed. Medications given PRN for comfort per family request. No distress noted.
--- NOTE | 2018-07-24 14:38 | NUR ---
PREMA Patient family members spoke with Mitra Layne vocational case manager regarding hospice care with [facility]. Rep is suppose to come speak with family today
--- NOTE | 2018-07-24 15:45 | NUR ---
SS consult for hospice evaluation. Pt's granddaughter, Yoko, and other family members present at pt's bedside. Per Yoko ALEXIS had spoken with family regarding hospice program and they were in agreeance with speaking to a hospice agency. Provided family with choice letter and list of hospice agencies. Family in agreeance with [facility]. Contacted [facility], and faxed requested medical information. [facility] to followup with family and meet for evaluation. States she will notify me of outcome.
--- NOTE | 2018-07-24 16:00 | NUR ---
COMFORT Patient repositioned on back with hob greater than 30 degrees, oral care performed. Low grade temp 99.0, orally. Medications given PRN for comfort per family request. Increased respiration and grunting. Oxygen sat 50's. No distress noted. Continue to monitor.
--- NOTE | 2018-07-24 21:10 | NUR ---
FAMILY/MORPHINE TALKED TO THE FAMILY (DAUGHTER AND SON) AND APOLOGIZE THAT I HAVEN'T BEEN IN THE ROOM FOR AWHILE. FAMILY REQUESTS THAT IV MORPHINE BE GIVEN EVERY 15MINS AND ATIVAN EVERY HOUR THEY WANT THEIR DAD TO BE COMFORTABLE. EXPLAINED THE EFFECTS OF THE MEDICATION - THEY SAID THEY KNEW IT AND THAT THEY WANT TO LET HIM PASS WITH COMFORT. ORDERED IV MORPHINE [id number] FOR PAIN AND IV ATIVAN Q1H PRN IN EMAR
[2018-07-25] VITALS: BP 74/36
[2018-07-25 00:15] VITALS: BP 69/30
[2018-07-25] MEDS: MORPHINE SULFATE 4 MG/ML SYR/VIAL IV PRN (00:15)
--- NOTE | 2018-07-25 00:23 | NUR ---
ASYSTOLE PATIENT IS ASYSTOLE NOW, NO HEART BEAT HEARD ON AUSCULTATION/PALPATION. PATIENT NOT BREATHING PAGED HOSPITALIST
--- NOTE | 2018-07-25 00:30 | NUR ---
HOSPITALIST ORACLE FUSION DEVELOPER KAYLA AT BEDSIDE
--- NOTE | 2018-07-25 01:00 | NUR ---
NO BELONGINGS FOR THE FAMILY TO BRING HOME CHECKED WITH PATIENT'S SON
--- NOTE | 2018-07-25 01:15 | NUR ---
[facility] CALLED AND TALKED TO MARSHA REF # [id number]
--- NOTE | 2018-07-25 01:25 | NUR ---
FAMILY FAMILY JUST LEFT RECORD OF FORM SIGNED MORTUARY NAME GIVEN
--- NOTE | 2018-07-25 01:31 | NUR ---
[facility] CALLED [facility] TO REPORT AWAITING CALL BACK
--- NOTE | 2018-07-25 02:10 | NUR ---
[facility] CALL[facility] BACK AND TALKED TO TAWNYA TALBOT RELEASED REF# [id number]
--- NOTE | 2018-07-25 04:00 | NUR ---
[facility] CALLED BACK AIRCRAFT REFUELER'S OFFICE TO FOLLOW UP SHE SAID THAT SHE WILL INFORM THE OFFICER
--- NOTE | 2018-07-25 04:45 | NUR ---
[facility] BODY RELEASED BY [facility] SEWING MACHINE TESTER'S NAME: BENJY LOAIZA CASE# [id number]
--- NOTE | 2018-07-25 05:00 | NUR ---
BODY CLEANED RT FEMORAL LINE REMOVED WOUND VAC DISCONTINUED BODY PLACED IN BLACK BAG
--- NOTE | 2018-07-25 05:30 | NUR ---
LE[facility] CALLED [facility] ETA 60-90 MINS
--- NOTE | 2018-07-25 06:44 | NUR ---
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
== END 2018-07-25 07:28 | disposition expired | DRG 853 ==
LOC: EDBD 13:35 → ER 13:39 → ICU CENTRL 22:50 → ICU WEST 23:20
PROVIDERS: ADMIT Surgery; ATTEND Internal Medicine
PROC: 0DSN0ZZ Reposition Sigmoid Colon, Open Approach (ICD-10-PCS; 2018-07-18)
PROC: 0D1M0Z4 Bypass Descending Colon to Cutaneous, Open Approach (ICD-10-PCS; 2018-07-18)
PROC: 5A1955Z Respiratory Ventilation, Greater than 96 Consecutive Hours (ICD-10-PCS; 2018-07-18)
PROC: 0BH17EZ Insertion of Endotracheal Airway into Trachea, Via Natural or Artificial Opening (ICD-10-PCS; 2018-07-18)
PROC: 0DBN0ZZ Excision of Sigmoid Colon, Open Approach (ICD-10-PCS; 2018-07-18)
PROC: 5A12012 Performance of Cardiac Output, Single, Manual (ICD-10-PCS; 2018-07-18)
PROC: 0D9670Z Drainage of Stomach with Drainage Device, Via Natural or Artificial Opening (ICD-10-PCS; 2018-07-18)
PROC: 06H033Z Insertion of Infusion Device into Inferior Vena Cava, Percutaneous Approach (ICD-10-PCS; 2018-07-18)
PROC: 0DBP0ZZ Excision of Rectum, Open Approach (ICD-10-PCS; 2018-07-18)
PROC: 0DJD8ZZ Inspection of Lower Intestinal Tract, Via Natural or Artificial Opening Endoscopic (ICD-10-PCS; principal; 2018-07-18 16:02)
DX: A41.9 Sepsis, unspecified organism (principal); K56.2 Volvulus; J15.212 Pneumonia due to Methicillin resistant Staphylococcus aureus; J96.00 Acute respiratory failure, unspecified whether with hypoxia or hypercapnia; R65.21 Severe sepsis with septic shock; I21.4 Non-ST elevation (NSTEMI) myocardial infarction; N17.0 Acute kidney failure with tubular necrosis; G92 Toxic encephalopathy; K55.039 Acute (reversible) ischemia of large intestine, extent unspecified; E44.0 Moderate protein-calorie malnutrition; E87.2 Acidosis; G93.1 Anoxic brain damage, not elsewhere classified; I13.0 Hypertensive heart and chronic kidney disease with heart failure and stage 1 through stage 4 chronic kidney disease, or unspecified chronic kidney disease; J44.0 Chronic obstructive pulmonary disease with (acute) lower respiratory infection; D63.1 Anemia in chronic kidney disease; I46.9 Cardiac arrest, cause unspecified; E87.6 Hypokalemia; D69.6 Thrombocytopenia, unspecified; I25.10 Atherosclerotic heart disease of native coronary artery without angina pectoris; N18.9 Chronic kidney disease, unspecified; G20 Parkinson's disease; I45.81 Long QT syndrome; D50.9 Iron deficiency anemia, unspecified; Z51.5 Encounter for palliative care; Z66 Do not resuscitate; R73.9 Hyperglycemia, unspecified; Z88.2 Allergy status to sulfonamides; Z68.30 Body mass index [BMI] 30.0-30.9, adult; Z95.5 Presence of coronary angioplasty implant and graft; Z82.49 Family history of ischemic heart disease and other diseases of the circulatory system
CPT/HCPCS: 31500; 36415; 36556; 36600; 45330; 51702; 70450; 71045; 71250; 74018; 74176; 76775; 80048; 80053; 80076; 80202; 81001; 82140; 82570; 82607; 82728; 82746; 82805; 83540; 83550; 83605; 83735; 83880; 84100; 84132; 84156; 84300; 84484; 85025; 85610; 85730; 86850; 86900; 86901; 87040; 87070; 87077; 87081; 87086; 87186; 87205; 93005; 93306; 94002; 94003; 94640; 94761; 96361; 96365; 96366; 96367; 96368; 96375; 99291; C9113; G0378; J0690; J0696; J1956; J2250; J2543; J2704; J3480; J3490; J7060; P9047